=== PATIENT | female | born 1935 | race Caucasian/White ===

== ENCOUNTER → 2019-04-28 | Outpatient (CLI) | payer MEDICARE ==
[2019-04-28 13:48] LABS: BASO # 0.1 10^3/uL (0.0-0.2); BASO % 0.8 % (0.0-1.0); EOS # 0.1 10^3/uL (0.0-0.50); EOS % 1.8 % (0.0-3.0); HEMATOCRIT 48.7 % (36.0-47.0); HEMOGLOBIN 14.8 g/dl (12.0-15.5); LYMPH # 1.5 10^3/uL (1.5-4.5); LYMPH % 19.8 % (24.0-44.0); MEAN CORPUSCULAR HGB CONC 30.4 g/dl (32.0-36.5); MEAN CORPUSCULAR VOLUME 88.9 fl (80.0-96.0); MONO # 0.7 10^3/uL (0.0-0.8); MONO % 8.4 % (0.0-5.0); NEUTROPHILS # 5.3 10^3/uL (1.8-7.7); NEUTROPHILS % 68.8 % (36.0-66.0); PLATELET COUNT, AUTOMATED 273 10^3/uL (150-450); RED BLOOD COUNT 5.48 10^6/uL (4.00-5.40); WHITE BLOOD COUNT 7.8 10^3/uL (4.0-10.0)
[2019-04-28 13:53] LABS: INR 1.07; PROTHROMBIN TIME 13.6 SECONDS (11.8-14.0)
[2019-04-28 13:54] LABS: PARTIAL THROMBOPLASTIN TIME 38.2 SECONDS (25.0-38.4)
[2019-04-28 14:05] LABS: ALBUMIN 3.7 GM/DL (3.2-5.2); ALT/SGPT 18 U/L (12-78); BILIRUBIN,TOTAL 0.4 MG/DL (0.2-1.0); BLOOD UREA NITROGEN 16 MG/DL (7-18); CALCIUM LEVEL 9.4 MG/DL (8.8-10.2); CARBON DIOXIDE LEVEL 32 MEQ/L (21-32); CHLORIDE LEVEL 104 MEQ/L (98-107); CREATININE FOR GFR 0.72 MG/DL (0.55-1.30); GLOMERULAR FILTRATION RATE > 60.0 (>32); GLUCOSE, FASTING 78 MG/DL (70-100); IMMUNOGLOBULIN G 1340 MG/DL (681-1648); POTASSIUM SERUM 4.4 MEQ/L (3.5-5.1); RHEUMATOID FACTOR QUANT 12.6 IU/ML (<15.0); SODIUM LEVEL 141 MEQ/L (136-145); TOTAL PROTEIN 7.6 GM/DL (6.4-8.2)
[2019-05-02 08:06] LABS: ALPHA 1 ANTITRYPSIN 177 mg/dL (90-200); ASPERGILLUS FLAVUS ABY Negative (Neg:<1:1); ASPERGILLUS FUMIGATUS ABY Negative (Neg:<1:1); ASPERGILLUS NIGER ABY Negative (Neg:<1:1); BLASTOMYCES ANTIBODY LEVEL Negative (Neg:<1:1); CRYPTOCOCCUS ANTIGEN SER Negative (Negative); HISTOPLASMOSIS ANTIBODY Negative (Neg:<1:1)
== END ==
LOC: M SMT 10:08
PROVIDERS: ATTEND Internal Medicine Pulmonary Disease
DX: R91.8 Other nonspecific abnormal finding of lung field (principal)

== ENCOUNTER → 2019-05-01 | Outpatient (CLI) | payer MEDICARE ==
[~2019-05-01] MED LIST: BREO1INH INH; MIRA3350 PO; PROBCAP14 PO; VITATAB64 PO
--- NOTE | 2019-05-05 14:03 | REP ---
REASON: Followup lung mass. COMPARISON: 02/02/2019 from an outside institution. [facility] protocol as well today. The lack of intravenous contrast decreases the sensitivity of the exam significantly. There is mediastinal hilar adenopathy and right hilar adenopathy cannot be ruled out. 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 There are no pleural or pericardial effusions. The imaged upper abdomen shows a left adrenal gland mass partially imaged and difficult to evaluate without intravenous contrast. The mass may have increased in size from the prior exam. The imaged osseous structures are stable. Evaluation of the lung schneider shows multiple right upper lobe spiculated nodules, the largest is pleural-based measuring approximately 1.1 x 1.8 cm. In the posterior segment of the right upper lobe, there is a partially cavitary mass lesion, which measures approximately 1.2 x 2 cm. All nodules spiculated lesions appear stable. There is a cavitary mass in the posterior segment of the right upper lobe with irregular margins. This cavitary lesion measures approximately 6.1 x 3.4 cm. It appears to have increased in size compared to the prior exam. There are other numerable subcentimeter sized irregular nodules seen throughout both lung schneider too numerous to count or individually assess. These have a stable appearance, however. There are other scattered asymmetric pleural densities seen throughout the upper lobe regions and right lower lobe region all stable from the latest prior. Note is again made of cylindrical bronchiectasis and lung schneider hyperexpansion status quo. IMPRESSION: 1. Exam limitations as described above. 2. Adenopathy and suspected adenopathy as described above. 3. Marked lung field abnormalities bilaterally, particularly right upper lobe with multiple spiculated lesions and a large cavitary lesion. Certainly, neoplasm is suspected, however, a combination of neoplasm and chronic inflammatory change should also be clinically evaluated for. 4. Other findings as described above. Contrast enhanced abdominal and pelvic CT is recommended. It should be stated that CT images from prior PET/CT 10/10/2018 also from an outside institution have also been reviewed, however, those examinations are technically different than today's examination. When those images are compared to today's examination, the pleural-based nodules and spiculations in the right upper lobe appear to have increased in size and the more centrally located right upper lobe spiculated lesion was not seen on that prior exam of 10/10/2018. That examination, however, did show a cavitary lesion which has increased in size on today's exam and that examination did show mediastinal adenopathy. Electronically Signed by Stewart Bush DO 05/05/2019 03:22 P
--- NOTE | 2019-05-12 12:37 | ROOR ---
Patient Name: Rachelle Rios Procedure Date: 05/12/2019 10:39 AM Date of : 1935 Admit Type: Outpatient Age: 83 Room: Main OR Note Status: Finalized Attending MD: Hui Vega MD Procedure: Bronchoscopy Indications: Abnormal CT scan of chest Providers: Hui Vega MD (Doctor) Referring MD: 1. No Referring Physician 1. No Referring Physician, Admin. (Referring MD) Requesting Physician: Medicines: General Anesthesia, Cetacaine topical Complications: No immediate complications. Estimated blood loss: Minimal Procedure: Pre-Anesthesia Assessment: - Prior to the procedure, a History and Physical was performed, and patient medications and allergies were reviewed. The patient's tolerance of previous anesthesia was also reviewed. The risks and benefits of the procedure and the sedation options and risks were discussed with the patient. All questions were answered, and informed consent was obtained. Prior Anticoagulants: The patient has taken no previous anticoagulant or antiplatelet agents. ASA Grade Assessment: III - A patient with severe systemic disease. After reviewing the risks and benefits, the patient was deemed in satisfactory condition to undergo the procedure. The Bronchoscope was introduced through the mouth, via the endotracheal tube (the patient was intubated for the procedure) and advanced to the tracheobronchial tree of both lungs. The procedure was accomplished without difficulty. The patient tolerated the procedure well. Findings: The endotracheal tube is in good position. The visualized portion of the trachea is of normal caliber. The becca is sharp. The tracheobronchial tree was examined to at least the first subsegmental level. Bronchial anatomy are normal; there are no endobronchial lesions. There were few areas of anthracotic pigmentation in bronchial mucosa and copious thick white/winston mucous secretions throughout bronchial tree. Bronchoalveolar lavage was performed in the lingula of the lung and sent for cell count, bacterial culture, and fungal & AFB analysis and cytology. The return was cloudy and mucoid. Mucous plugs were present in the return fluid. Bronchoalveolar lavage was performed in the RUL posterior segment (B2) of the lung and sent for cell count, bacterial culture, and fungal & AFB analysis and cytology. The return was cloudy, mucoid and turbid. Mucous plugs were present in the return fluid. Electromagnetic navigation bronchoscopy utilizing the [employer] system with iLogic upgrade was performed. The CT scan was used for planning purposes. A virtual bronchoscopic image was generated using the planning software and the becca, left main bronchus becca, left lower lobe basilar segment, right upper lobe, right middle lobe and right lower lobe basilar segment registration points were marked on the virtual image. The target in the posterior segment of the right upper lobe was marked. A mass 6.1 x 3.4cm in size was found and a pathway was created. After a complete airway exam, the locatable guide/extended working channel was inserted and an automatic registration was performed. The navigation phase was then begun to locate the target lesion(s). Positioning off-center (in relation to the lesion) was confirmed using the Olympus radial probe US catheter. The locatable guide was removed from the extended working channel. Fluoroscopy guided transbronchial brushings of a mass were obtained in the posterior segment of the right upper lobe with a needle brush and sent for routine cytology. Transbronchial brushing technique was selected because the sampling site was not visible endoscopically. Transbronchial needle aspirations of a mass were performed in the posterior segment of the right upper lobe GenCut needle and sent for routine cytology. The procedure was guided by fluoroscopy. Transbronchial needle aspiration technique was selected because the sampling site was not visible endoscopically. Transbronchial biopsies of a mass were performed in the posterior segment of the right upper lobe using forceps and sent for histopathology examination. The procedure was guided by fluoroscopy. Transbronchial biopsy technique was selected because the sampling site was not visible endoscopically. Fluoroscopy guided transbronchial brushings of a nodule were obtained in the apical segment of the right upper lobe with a needle brush and sent for routine cytology. Transbronchial brushing technique was selected because the sampling site was not visible endoscopically. Transbronchial needle aspirations of a nodule were performed in the apical segment of the right upper lobe GenCut needle and sent for routine cytology. The procedure was guided by fluoroscopy. Transbronchial needle aspiration technique was selected because the sampling site was not visible endoscopically. Transbronchial biopsies of a nodule were performed in the apical segment of the right upper lobe using forceps and sent for histopathology examination. The procedure was guided by fluoroscopy. Transbronchial biopsy technique was selected because the sampling site was not visible endoscopically. Bronchoalveolar lavage was performed in the RUL posterior segment (B2) of the lung and sent for routine cytology. The return was blood-tinged and mucoid. An endobronchial ultrasound endoscope was utilized to survey the lymph nodes in mediastinum and hilar region. The right hilar lymph nodes were visualized and were not pathologocially enlarged. The right paratracheal lymph node was visualized and did not appear enlarged, it was also diffiult to maintain a view without the use of the balloon. The subcarinal lymph node was visualized and endobronchial ultrasound endoscope was used in order to assist with fine needle aspiration in the subcarinal area. Transbronchial needle aspirations of a lymph node were performed in the subcarinal area using an Olympus EBUS-TBNA 21 gauge needle and sent for routine cytology. The procedure was guided by ultrasound. Transbronchial needle aspiration technique was selected because the sampling site was not visible endoscopically. Impression: - Abnormal CT scan of chest - The airway examination was normal. - Bronchoalveolar lavage was performed. - Bronchoalveolar lavage was performed. - Electromagnetic navigation bronchoscopy was performed. - Transbronchial brushings were obtained. - A transbronchial needle aspiration was performed. - Transbronchial lung biopsies were performed. - Transbronchial brushings were obtained. - A transbronchial needle aspiration was performed. - Transbronchial lung biopsies were performed. - Bronchoalveolar lavage was performed. - Endobronchial ultrasound was performed. - A transbronchial needle aspiration was performed. Recommendation: - Follow up with bronchoscopist as previously scheduled. Attending Participation: I personally performed the entire procedure. Hui Vega MD 05/12/2019 12:37:11 PM Number of Addenda: 0 Note Initiated On: 05/12/2019 10:39 AM
== END ==
LOC: M RAD 14:26
PROVIDERS: ATTEND Internal Medicine Pulmonary Disease
DX: R91.8 Other nonspecific abnormal finding of lung field (principal)

== ENCOUNTER 2019-05-12 09:05 | Day surgery (SDC) | payer MEDICARE ==
[~2019-05-12] VITALS: Ht 160 cm; Wt 46.3 kg
[~2019-05-12 09:05] MED LIST changes: +LIDOCAINE 1% MDV 20ML VIAL SQ PRN; +LR 1,000 ML IV ONE
[2019-05-12] MEDS ORDERED: LIDOCAINE 1% SDV INJ 30 ML VIAL As Ordered ONE (10:33)
[2019-05-12] MEDS ORDERED: EPINEPHrine 1MG/10ML SYRINGE 1.5IN As Ordered ONE (10:33)
[2019-05-12] MEDS ORDERED: THROMBIN SOLN 5,000 UNITS VIAL As Ordered ONE (10:33)
[2019-05-12] MEDS ORDERED: LIDOCAINE VISCOUS 2% SOLN 15ML UDC As Ordered ONE (10:34)
[2019-05-12] MEDS ORDERED: CETACAINE SPRAY 5GM As Ordered ONE (10:59)
[2019-05-12] MEDS ORDERED: dexameTHASONE 4 MG/ML 1ML VIAL (J1100) As Ordered ONE (12:18)
[2019-05-12] MEDS ORDERED: ROCURONIUM BROMIDE 50 MG/5 ML VIAL As Ordered ONE (12:18)
[2019-05-12] MEDS ORDERED: ONDANSETRON 4MG/2ML VIAL (J2405) As Ordered ONE (12:18)
[2019-05-12] MEDS ORDERED: LIDOCAINE 2% INJ 100 MG/5 ML SDV (FOR ANES.) As Ordered ONE (12:18)
[2019-05-12] MEDS ORDERED: SUGAMMADEX SODIUM 500 MG/5 ML VIAL (BRIDION) As Ordered ONE (12:18)
[2019-05-12] MEDS ORDERED: fentaNYL 100 MCG/2 ML INJECTION (J3010) As Ordered ONE (12:18)
[2019-05-12] MEDS ORDERED: ePHEDrine SULFATE 25 MG/5 ML(5MG/ML) SYRINGE As Ordered ONE (12:18)
--- NOTE | 2019-05-12 12:37 | ROOR ---
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 No Referring Physician 1. No Referring Physician, Admin. (Referring MD) Requesting Physician: Medicines: General Anesthesia, Cetacaine topical Complications: No immediate complications. Estimated blood loss: Minimal Procedure: Pre-Anesthesia Assessment: - Prior to the procedure, a History and Physical was performed, and patient medications and allergies were reviewed. The patient's tolerance of previous anesthesia was also reviewed. The risks and benefits of the procedure and the sedation options and risks were discussed with the patient. All questions were answered, and informed consent was obtained. Prior Anticoagulants: The patient has taken no previous anticoagulant or antiplatelet agents. ASA Grade Assessment: III - A patient with severe systemic disease. After reviewing the risks and benefits, the patient was deemed in satisfactory condition to undergo the procedure. The Bronchoscope was introduced through the mouth, via the endotracheal tube (the patient was intubated for the procedure) and advanced to the tracheobronchial tree of both lungs. The procedure was accomplished without difficulty. The patient tolerated the procedure well. Findings: The endotracheal tube is in good position. The visualized portion of the trachea is of normal caliber. The becca is sharp. The tracheobronchial tree was examined to at least the first subsegmental level. Bronchial anatomy are normal; there are no endobronchial lesions. There were few areas of anthracotic pigmentation in bronchial mucosa and copious thick white/winston mucous secretions throughout bronchial tree. Bronchoalveolar lavage was performed in the lingula of the lung and sent for cell count, bacterial culture, and fungal & AFB analysis and cytology. The return was cloudy and mucoid. Mucous plugs were present in the return fluid. Bronchoalveolar lavage was performed in the RUL posterior segment (B2) of the lung and sent for cell count, bacterial culture, and fungal & AFB analysis and cytology. The return was cloudy, mucoid and turbid. Mucous plugs were present in the return fluid. Electromagnetic navigation bronchoscopy utilizing the Med[employer] system with iLogic upgrade was performed. The CT scan was used for planning purposes. A virtual bronchoscopic image was generated using the planning software and the becca, left main bronchus becca, left lower lobe basilar segment, right upper lobe, right middle lobe and right lower lobe basilar segment registration points were marked on the virtual image. The target in the posterior segment of the right upper lobe was marked. A mass 6.1 x 3.4cm in size was found and a pathway was created. After a complete airway exam, the locatable guide/extended working channel was inserted and an automatic registration was performed. The navigation phase was then begun to locate the target lesion(s). Positioning off-center (in relation to the lesion) was confirmed using the Olympus radial probe US catheter. The locatable guide was removed from the extended working channel. Fluoroscopy guided transbronchial brushings of a mass were obtained in the posterior segment of the right upper lobe with a needle brush and sent for routine cytology. Transbronchial brushing technique was selected because the sampling site was not visible endoscopically. Transbronchial needle aspirations of a mass were performed in the posterior segment of the right upper lobe GenCut needle and sent for routine cytology. The procedure was guided by fluoroscopy. Transbronchial needle aspiration technique was selected because the sampling site was not visible endoscopically. Transbronchial biopsies of a mass were performed in the posterior segment of the right upper lobe using forceps and sent for histopathology examination. The procedure was guided by fluoroscopy. Transbronchial biopsy technique was selected because the sampling site was not visible endoscopically. Fluoroscopy guided transbronchial brushings of a nodule were obtained in the apical segment of the right upper lobe with a needle brush and sent for routine cytology. Transbronchial brushing technique was selected because the sampling site was not visible endoscopically. Transbronchial needle aspirations of a nodule were performed in the apical segment of the right upper lobe GenCut needle and sent for routine cytology. The procedure was guided by fluoroscopy. Transbronchial needle aspiration technique was selected because the sampling site was not visible endoscopically. Transbronchial biopsies of a nodule were performed in the apical segment of the right upper lobe using forceps and sent for histopathology examination. The procedure was guided by fluoroscopy. Transbronchial biopsy technique was selected because the sampling site was not visible endoscopically. Bronchoalveolar lavage was performed in the RUL posterior segment (B2) of the lung and sent for routine cytology. The return was blood-tinged and mucoid. An endobronchial ultrasound endoscope was utilized to survey the lymph nodes in mediastinum and hilar region. The right hilar lymph nodes were visualized and were not pathologocially enlarged. The right paratracheal lymph node was visualized and did not appear enlarged, it was also diffiult to maintain a view without the use of the balloon. The subcarinal lymph node was visualized and endobronchial ultrasound endoscope was used in order to assist with fine needle aspiration in the subcarinal area. Transbronchial needle aspirations of a lymph node were performed in the subcarinal area using an Olympus EBUS-TBNA 21 gauge needle and sent for routine cytology. The procedure was guided by ultrasound. Transbronchial needle aspiration technique was selected because the sampling site was not visible endoscopically. Impression: - Abnormal CT scan of chest - The airway examination was normal. - Bronchoalveolar lavage was performed. - Bronchoalveolar lavage was performed. - Electromagnetic navigation bronchoscopy was performed. - Transbronchial brushings were obtained. - A transbronchial needle aspiration was performed. - Transbronchial lung biopsies were performed. - Transbronchial brushings were obtained. - A transbronchial needle aspiration was performed. - Transbronchial lung biopsies were performed. - Bronchoalveolar lavage was performed. - Endobronchial ultrasound was performed. - A transbronchial needle aspiration was performed. Recommendation: - Follow up with bronchoscopist as previously scheduled. Attending Participation: I personally performed the entire procedure. Hui Vega MD 05/12/2019 12:37:11 PM Number of Addenda: 0 Note Initiated On: 05/12/2019 10:39 AM
[2019-05-12] MEDS ORDERED: PROPOFOL 200 MG/20 ML VIAL As Ordered ONE (12:39)
[2019-05-12] MEDS ORDERED: IPRATROPIUM 0.5MG/ALBUTEROL 2.5MG INH SOL UD 3ML (DUONEB)(J7620) As Ordered ONE (12:44)
[2019-05-12] MEDS ORDERED: fentaNYL 100 MCG/2 ML INJECTION (J3010) IV PRN (12:45)
[2019-05-12] MEDS ORDERED: ONDANSETRON 4MG/2ML VIAL (J2405) IV PRN (12:45)
[2019-05-12] MEDS ORDERED: ACETAMINOPHEN TAB 650MG DOSE (2X325MG) PO PRN (12:45)
[2019-05-12] MEDS ORDERED: LR 1,000 ML IV SCH (12:45)
--- NOTE | 2019-05-12 12:47 | REP ---
Clinical: Postoperative assessment. Comparison: 03/31/2012. Findings: Mediastinum and cardiac silhouette are relatively stable and grossly normal for portable technique. Lung schneider demonstrate diffuse chronic interstitial changes. Superimposed right upper lobe infiltrate and subtle small scattered nodules along with mild bibasilar fibroatelectatic changes (right greater than left) suggested. No definite effusion. No pneumothorax. Skeletal structures demonstrate age-related osteopenia and degenerative change. Impression: Chronic changes with suspected superimposed right upper lobe infiltrate and subtle scattered small nodules and trace bibasilar atelectasis Electronically Signed by Maxim Panda MD 05/12/2019 12:39 P
[2019-05-12] MEDS ORDERED: IPRATROPIUM 0.5MG/ALBUTEROL 2.5MG INH SOL UD 3ML (DUONEB)(J7620) NEB ONE ×2 (13:00→16:30)
[2019-05-12 13:48] LABS: APPEARANCE CLOUDY (CLEAR); SOURCE BRON ALVEOLAR LAVAGE
[2019-05-12 15:04] LABS: APPEARANCE CLOUDY (CLEAR); COLOR COLORLESS (COLORLESS); SOURCE RIGHT UPPER LOBE
[2019-05-12 15:53] LABS: MONOCYTES/MACROPHAGES, BAL 3 %
[2019-05-12 15:55] LABS: MONOCYTES/MACROPHAGES, BAL 2 %
[2019-05-12 17:50] VITALS: BP 126/60
== END 2019-05-12 17:50 | disposition home or self-care (01) ==
LOC: M SDC 09:05
PROVIDERS: ATTEND Internal Medicine Pulmonary Disease
DX: R91.8 Other nonspecific abnormal finding of lung field (principal); I10 Essential (primary) hypertension; I73.9 Peripheral vascular disease, unspecified; M19.90 Unspecified osteoarthritis, unspecified site; J44.9 Chronic obstructive pulmonary disease, unspecified; K57.30 Diverticulosis of large intestine without perforation or abscess without bleeding; K59.00 Constipation, unspecified; R60.0 Localized edema; R26.9 Unspecified abnormalities of gait and mobility; Z88.2 Allergy status to sulfonamides; Z88.8 Allergy status to other drugs, medicaments and biological substances; Z91.013 Allergy to seafood; Z91.040 Latex allergy status; Z91.041 Radiographic dye allergy status; Z79.899 Other long term (current) drug therapy; Z90.710 Acquired absence of both cervix and uterus; Z85.3 Personal history of malignant neoplasm of breast; Z92.3 Personal history of irradiation; Z96.643 Presence of artificial hip joint, bilateral

== ENCOUNTER → 2019-06-09 | Outpatient (CLI) | payer MEDICARE ==
[~2019-06-09] MED LIST changes: -LIDOCAINE 1% MDV 20ML VIAL SQ PRN; -LR 1,000 ML IV ONE
--- NOTE | 2019-06-09 11:24 | REP ---
The of the chest without IV contrast: Comparison is 05/01/2019. There are multiple right upper lobe lung nodules. These have not significantly changed in size. There is a large pleural-based bullae posteriorly in the right upper lobe apex. The wall along the pleura is thickened. This is unchanged. Inferior to this there is a pleural-based cavitary lesion in the right upper lobe, also unchanged. There is bronchiectasis in the lower lobes bilaterally, unchanged. There is bronchiectasis accompanied by scarring in the middle lobe and lingula, unchanged. There is a precarinal mediastinal node measuring up to 13.5 mm short axis, not significantly changed. This is enlarged. In the absence of IV contrast the study is insensitive for hilar lymphadenopathy. Cardiac size is upper normal. There is no pericardial effusion. On the comparison study a left adrenal gland mass was suspected. The left adrenal is obscured by beam-hardening artifact from surgical clips on the current study and cannot be visualized. Impression: No significant interval change. Electronically Signed by Zafar George MD 06/09/2019 11:16 A
== END ==
LOC: M RAD 09:44
PROVIDERS: ATTEND Internal Medicine Pulmonary Disease
DX: J44.9 Chronic obstructive pulmonary disease, unspecified (principal)